=== PATIENT | female | born 1995 | race Caucasian/White ===

== ENCOUNTER 2022-10-03 20:45 | Emergency (ER) | payer MEDICAID, OTHER ==
[~2022-10-03] VITALS: Ht 152.4 cm; Wt 90.7 kg
[2022-10-03 21:08] VITALS: BP_SYST 150
[2022-10-03] MEDS ORDERED: DEXAMETHASONE SOD PHOSPHATE 10 MG/ML VIAL PO ONE (22:30)
[2022-10-03] MEDS ORDERED: ALBUTEROL SULFATE 0.083% 2.5 MG/3 ML VIAL.NEB INH ONE (22:30)
[2022-10-03] MEDS ORDERED: GUAI100S14 PO (23:38)
[2022-10-04 00:10] VITALS: BP_SYST 145
== END 2022-10-04 00:09 | disposition home or self-care (01) ==
LOC: SED 20:45
DX: J45.901 Unspecified asthma with (acute) exacerbation (principal); B34.9 Viral infection, unspecified; R06.02 Shortness of breath; R05.9 Cough, unspecified; R09.81 Nasal congestion; Z79.899 Other long term (current) drug therapy; Z20.822 Contact with and (suspected) exposure to COVID-19
CPT/HCPCS: 36415; 94640; 99283; 87804 ×2; 87426; J1100; J7613